=== PATIENT | male | born 1965 | race Caucasian/White ===

== ENCOUNTER 2023-03-13 14:36 | Emergency (ER) | payer MEDICAID ==
[2023-03-13] MEDS ORDERED: Sodium Chloride 0.9% 10 ML Syringe FLUSH PRN (15:31)
[2023-03-13] MEDS ORDERED: Sodium Chloride 0.9% 1,000 ML IV SCH (15:45)
[2023-03-13] MEDS ORDERED: OLANZapine 5 MG Tab PO ONE (16:27)
== END 2023-03-13 18:08 | disposition home or self-care (01) ==
LOC: JD.ED 14:36
DX: R41.0 Disorientation, unspecified (principal); E86.0 Dehydration; Z79.899 Other long term (current) drug therapy
CPT/HCPCS: 36415; 70450; 71045; 80053; 80306; 80307; 81003; 83735; 84484; 85025; 93005; 96360; 99285; A9270; J3490; J7030; 93010; 99284

== ENCOUNTER 2023-05-08 13:38 | Emergency (ER) | payer MEDICAID ==
[2023-05-08] MEDS ORDERED: Sodium Chloride 0.9% 10 ML Syringe FLUSH PRN (13:45)
[2023-05-08] MEDS ORDERED: Alum Hydrox/Mag Hydrox/Simeth 30 ML, Lidocaine 2% 15 ML PO ONE ×2 (14:10)
[2023-05-08 14:14] LABS: BASOPHILS ABSOLUTE AUTO 0.01 K/mm3 (0.01-0.08); BASOPHILS PERCENT AUTO 0.2 % (0.1-1.2); EOSINOPHILS ABSOLUTE AUTO 0.05 K/mm3 (0.04-0.54); HEMATOCRIT 42.6 % (40.1-51.0); HEMOGLOBIN 14.4 gm/dl (13.7-17.5); IMMATURE GRAN ABSOLUTE AUTO 0.01 K/mm3 (0.00-0.10); IMMATURE GRAN PERCENT AUTO 0.2 % (<=1.0); LYMPHOCYTES ABSOLUTE AUTO 0.63 K/mm3 (1.32-3.57); LYMPHOCYTES PERCENT AUTO 12.6 % (21.8-53.1); MEAN CORPUSCULAR HEMOGLOBIN 28.9 pg (25.7-32.2); MEAN CORPUSCULAR HGB CONC 33.8 g/dl (32.2-35.5); MEAN CORPUSCULAR VOLUME 85.5 fl (79.0-92.2); MEAN PLATELET VOLUME 9.3 fl (9.4-12.3); MONOCYTES ABSOLUTE AUTO 0.57 K/mm3 (0.30-0.82); MONOCYTES PERCENT AUTO 11.4 % (5.3-12.2); NEUTROPHILS ABSOLUTE AUTO 3.74 K/mm3 (1.78-5.38); NEUTROPHILS PERCENT AUTO 74.6 % (34.0-67.9); PLATELET COUNT,PLT 263 K/mm3 (163-337); RED BLOOD CELL COUNT 4.98 M/mm3 (4.63-6.08); WHITE BLOOD CELL COUNT,WBC 5.01 K/mm3 (4.23-9.07)
[2023-05-08] MEDS ORDERED: Aluminum Hydroxide/Magnesium Hydroxide/Simethicone Susp 30 ML Cup PO ONE (14:24)
[2023-05-08 14:38] LABS: INR 0.93
[2023-05-08 14:40] LABS: PTT,PARTIAL THROMBOPLSTIN TIME 26.2 SECONDS (21.7-31.4)
[2023-05-08 14:55] LABS: ALBUMIN 3.6 g/dl (3.4-5.0); ANION GAP 15.1 (5-15); BILIRUBIN TOTAL 0.3 mg/dL (0.2-1.0); CREATININE 1.2 mg/dL (0.7-1.3); EST CRCL DRUG DOSING (CG) 66.28 mL/min; MAGNESIUM 1.8 mg/dL (1.8-2.4); POTASSIUM,K 4.1 mEq/L (3.5-5.1); PROTEIN TOTAL,TP 7.3 g/dl (6.4-8.2)
== END 2023-05-08 16:08 | disposition home or self-care (01) ==
LOC: JD.ED 13:38
DX: K21.9 Gastro-esophageal reflux disease without esophagitis (principal)
CPT/HCPCS: 36415; 71045; 80053; 83735; 83880; 84484; 85025; 85610; 85730; 93005; 99285; A9270

== ENCOUNTER 2023-05-29 11:51 | Emergency (ER) | payer MEDICAID | END 2023-05-29 13:47 | disposition home or self-care (01) | LOC: JD.ED 11:51 | DX: K21.9 Gastro-esophageal reflux disease without esophagitis (principal); Z76.0 Encounter for issue of repeat prescription | CPT/HCPCS: 99281; 99282 ==